=== PATIENT | female | born 1960 | race Caucasian/White ===

== ENCOUNTER → 2017-01-31 | Outpatient (REF) | LOC: ZLAB.WCH 18:17 | DX: Z01.89 Encounter for other specified special examinations (principal) ==

== ENCOUNTER → 2018-02-19 | Outpatient (REF) ==
[2018-02-19 17:10] LABS: THYROID STIMULATING HORMONE 4.53 uIU/mL (0.465-4.680)
== END ==
LOC: ZLAB.WCH 16:07
PROVIDERS: Physician Assistant
DX: Z01.89 Encounter for other specified special examinations (principal)